=== PATIENT | female | born 1970 | race Caucasian/White ===

== ENCOUNTER 2016-05-15 15:58 | Inpatient (IN) | payer MEDICARE, MEDICAID ==
[~2016-05-15] VITALS: Ht 157.5 cm; Wt 49.9 kg
[~2016-05-15 15:58] MED LIST: DIVA500T69 PO; NALT50 PO; OLAN5Z PO; TOLT4CAP33 PO; TRAZ150 PO
[2016-05-15] MEDS ORDERED: ACETAMINOPHEN 325 MG TABLET PO PRN (16:15)
[2016-05-15] MEDS ORDERED: HydrOXYzine PAMOATE 50 MG CAPSULE PO PRN (16:15)
[2016-05-15] MEDS ORDERED: OLANZapine 5 MG RAPDIS TABLET PO PRN (16:15)
[2016-05-15] MEDS ORDERED: MAGNESIUM HYDROXIDE SUSPENSION 30 ML UDCUP PO PRN (16:15)
[2016-05-15] MEDS ORDERED: GuaiFENesin/D-METHORPHAN [SUGAR-FREE] 200-20MG/10 ML SYRUP UDCUP PO PRN (16:15)
[2016-05-15] MEDS ORDERED: LOPERAMIDE HCL 2 MG CAPSULE PO PRN (16:15)
[2016-05-15] MEDS ORDERED: PROMETHAZINE HCL 25 MG TABLET PO PRN (16:15)
[2016-05-15] MEDS ORDERED: ZOLPIDEM TARTRATE 10 MG TABLET PO PRN (16:15)
[2016-05-15 16:46] VITALS: BP 120/83
[2016-05-15] MEDS: LORazepam 2 MG TABLET PO PRN (18:28)
[2016-05-15] MEDS: THIAMINE HCL 100 MG TABLET PO SCH (18:28)
[2016-05-15] MEDS ORDERED: PERMETHRIN 5% 60 GM CREAM TP ONE (20:00)
[2016-05-15] MEDS: OLANZapine 5 MG RAPDIS TABLET PO SCH (20:51)
[2016-05-15] MEDS: DIVALPROEX SODIUM 500 MG ER TABLET PO SCH (20:51)
[2016-05-16 00:43] VITALS: BP 134/79
[2016-05-16] MEDS: FLUoxetine HCL 20 MG CAPSULE PO SCH (09:03)
[2016-05-16] MEDS: THIAMINE HCL 100 MG TABLET PO SCH ×2 (09:03→16:59)
[2016-05-16] MEDS: FOLIC ACID 1 MG TABLET PO SCH (09:03)
[2016-05-16] MEDS: OMEPRAZOLE 20 MG CAPSULE PO SCH (09:03)
[2016-05-16] MEDS: MULTIVITAMINS WITH MINERALS, THERAPEUTIC TABLET PO SCH (09:03)
[2016-05-16 09:14] VITALS: BP 139/91
[2016-05-16] MEDS: LORazepam 2 MG TABLET PO PRN ×2 (11:26→16:59)
[2016-05-16 13:47] VITALS: BP 123/72
[2016-05-16 16:59] VITALS: BP 115/73
[2016-05-16] MEDS: DIVALPROEX SODIUM 500 MG ER TABLET PO SCH (20:19)
[2016-05-16] MEDS: OLANZapine 5 MG RAPDIS TABLET PO SCH (20:20)
[2016-05-17 00:27] VITALS: BP 110/69
[2016-05-17 08:08] LABS: BASOPHILS % (AUTO) 0.6 % (0.0-2.0); HEMATOCRIT 31.2 % (36-46); HEMOGLOBIN 9.9 g/dL (12.0-16.0); LYMPHOCYTES # (AUTO) 2.1 K/uL (1.0-4.8); LYMPHOCYTES % (AUTO) 22.2 % (22.0-44.0); MEAN CORPUSCULAR HGB CONC 31.7 G/dL (31.0-37.0); MEAN CORPUSCULAR VOLUME 76 fL (80-100); MONOCYTES # (AUTO) 0.7 K/uL (0.1-1.0); MONOCYTES % (AUTO) 7.9 % (2.0-9.0); NEUTROPHILS # (AUTO) 6.4 K/uL (1.8-7.7); NEUTROPHILS % (AUTO) 67.3 % (40.0-70.0); PLATELET COUNT (AUTO) 350 K/uL (150-450); RED BLOOD CELL COUNT(AUTO) 4.12 MIL/uL (4.00-5.20); RED CELL DISTRIBUTION WIDTH 19.8 % (11.5-14.5); WHITE BLOOD COUNT (AUTO) 9.5 K/uL (4.5-11.0)
[2016-05-17 08:19] VITALS: BP 110/79
[2016-05-17 08:32] LABS: RBC MORPHOLOGY COMMENT ABNORMAL RBC MORPH
[2016-05-17] MEDS: NALTREXONE HCL 50 MG TABLET PO SCH (09:22)
[2016-05-17] MEDS: FOLIC ACID 1 MG TABLET PO SCH (09:22)
[2016-05-17] MEDS: THIAMINE HCL 100 MG TABLET PO SCH ×2 (09:22→16:32)
[2016-05-17] MEDS: OMEPRAZOLE 20 MG CAPSULE PO SCH (09:22)
[2016-05-17] MEDS: FLUoxetine HCL 20 MG CAPSULE PO SCH (09:22)
[2016-05-17] MEDS: MULTIVITAMINS WITH MINERALS, THERAPEUTIC TABLET PO SCH (09:22)
[2016-05-17] MEDS: LORazepam 2 MG TABLET PO PRN ×2 (09:28→14:29)
[2016-05-17 09:29] LABS: ALANINE AMINOTRANSFERASE 29 U/L (12-78); ALBUMIN 2.9 g/dL (3.4-5.0); ANION GAP 6 mmol/L (8-16); ASPARTATE AMINOTRANSFERASE 18 U/L (15-37); BILIRUBIN,TOTAL 0.2 mg/dL (0.1-1.0); CALCIUM, TOTAL 8.1 mg/dL (8.8-10.5); CARBON DIOXIDE 27 mmol/L (22-29); CHLORIDE 105 mmol/L (98-107); CREATININE 0.73 mg/dL (0.60-1.30); GLOMERULAR FILTR. RATE CALC > 60 mL/min (>60); POTASSIUM 4.1 mmol/L (3.5-5.1); SODIUM SERUM 138 mmol/L (136-145); TOTAL PROTEIN, SERUM 6.4 g/dL (6.4-8.2); UREA NITROGEN, BLOOD 10 mg/dL (7-18)
[2016-05-17] MEDS ORDERED: OLANZAPINE PAMOATE 405 MG/2.7 ML VIAL IM ONE (16:00)
[2016-05-17 16:01] VITALS: BP 106/75
[2016-05-17] MEDS: MUPIROCIN CALCIUM 2% 22 GM OINTMENT TP SCH (16:35)
[2016-05-17 18:24] VITALS: BP 112/78
[2016-05-17 19:24] VITALS: BP 108/70
[2016-05-17] MEDS: DIVALPROEX SODIUM 500 MG ER TABLET PO SCH (20:01)
[2016-05-17 21:00] VITALS: BP 107/65
[2016-05-18 00:11] VITALS: BP 108/77
[2016-05-18 08:56] VITALS: BP 102/72
[2016-05-18] MEDS: THIAMINE HCL 100 MG TABLET PO SCH ×2 (09:26→17:10)
[2016-05-18] MEDS: FOLIC ACID 1 MG TABLET PO SCH (09:26)
[2016-05-18] MEDS: NALTREXONE HCL 50 MG TABLET PO SCH (09:26)
[2016-05-18] MEDS: MULTIVITAMINS WITH MINERALS, THERAPEUTIC TABLET PO SCH (09:26)
[2016-05-18] MEDS: OMEPRAZOLE 20 MG CAPSULE PO SCH (09:26)
[2016-05-18] MEDS: FLUoxetine HCL 20 MG CAPSULE PO SCH (09:26)
[2016-05-18] MEDS: MUPIROCIN CALCIUM 2% 22 GM OINTMENT TP SCH ×2 (09:27→17:10)
[2016-05-18] MEDS: LORazepam 2 MG TABLET PO PRN ×2 (09:32→14:49)
[2016-05-18 16:41] VITALS: BP 109/64
[2016-05-18] MEDS: FERROUS SULFATE 325 MG EC TABLET PO SCH (17:10)
[2016-05-18] MEDS: DIVALPROEX SODIUM 500 MG ER TABLET PO SCH (20:13)
[2016-05-19] MEDS: FERROUS SULFATE 325 MG EC TABLET PO SCH ×3 (06:36→16:18)
[2016-05-19 06:57] VITALS: BP 111/88
[2016-05-19 08:01] VITALS: BP 110/86
[2016-05-19] MEDS: OMEPRAZOLE 20 MG CAPSULE PO SCH (08:42)
[2016-05-19] MEDS: FOLIC ACID 1 MG TABLET PO SCH (08:42)
[2016-05-19] MEDS: FLUoxetine HCL 20 MG CAPSULE PO SCH (08:42)
[2016-05-19] MEDS: THIAMINE HCL 100 MG TABLET PO SCH ×2 (08:43→16:18)
[2016-05-19] MEDS: NALTREXONE HCL 50 MG TABLET PO SCH (08:43)
[2016-05-19] MEDS: MULTIVITAMINS WITH MINERALS, THERAPEUTIC TABLET PO SCH (08:43)
[2016-05-19] MEDS: MUPIROCIN CALCIUM 2% 22 GM OINTMENT TP SCH ×2 (08:43→19:24)
[2016-05-19 16:06] VITALS: BP 124/75
[2016-05-19] MEDS: DIVALPROEX SODIUM 500 MG ER TABLET PO SCH (20:00)
[2016-05-19] MEDS: LORazepam 2 MG TABLET PO PRN (20:00)
[2016-05-20 05:18] VITALS: BP 105/62
[2016-05-20] MEDS: FERROUS SULFATE 325 MG EC TABLET PO SCH ×3 (06:29→16:26)
[2016-05-20 08:53] VITALS: BP 119/71
[2016-05-20] MEDS: OMEPRAZOLE 20 MG CAPSULE PO SCH (09:18)
[2016-05-20] MEDS: NALTREXONE HCL 50 MG TABLET PO SCH (09:18)
[2016-05-20] MEDS: FLUoxetine HCL 20 MG CAPSULE PO SCH (09:18)
[2016-05-20] MEDS: MUPIROCIN CALCIUM 2% 22 GM OINTMENT TP SCH ×2 (09:18→16:27)
[2016-05-20] MEDS: FOLIC ACID 1 MG TABLET PO SCH (09:18)
[2016-05-20] MEDS: THIAMINE HCL 100 MG TABLET PO SCH ×2 (09:18→16:26)
[2016-05-20] MEDS: MULTIVITAMINS WITH MINERALS, THERAPEUTIC TABLET PO SCH (09:21)
[2016-05-20] MEDS: LORazepam 2 MG TABLET PO PRN (14:15)
[2016-05-20 16:08] VITALS: BP 111/60
[2016-05-20] MEDS: DIVALPROEX SODIUM 500 MG ER TABLET PO SCH (20:25)
[2016-05-21 04:28] VITALS: BP 117/60
[2016-05-21] MEDS: FERROUS SULFATE 325 MG EC TABLET PO SCH ×3 (07:01→16:44)
[2016-05-21] MEDS: MUPIROCIN CALCIUM 2% 22 GM OINTMENT TP SCH ×2 (08:46→16:48)
[2016-05-21] MEDS: THIAMINE HCL 100 MG TABLET PO SCH ×2 (08:46→16:45)
[2016-05-21] MEDS: OMEPRAZOLE 20 MG CAPSULE PO SCH (08:46)
[2016-05-21] MEDS: NALTREXONE HCL 50 MG TABLET PO SCH (08:46)
[2016-05-21] MEDS: MULTIVITAMINS WITH MINERALS, THERAPEUTIC TABLET PO SCH (08:46)
[2016-05-21] MEDS: FLUoxetine HCL 20 MG CAPSULE PO SCH (08:46)
[2016-05-21] MEDS: FOLIC ACID 1 MG TABLET PO SCH (08:46)
[2016-05-21 09:06] VITALS: BP 120/73
[2016-05-21] MEDS: LORazepam 2 MG TABLET PO PRN (11:07)
[2016-05-21] MEDS: DIVALPROEX SODIUM 500 MG ER TABLET PO SCH (20:58)
[2016-05-22 00:33] VITALS: BP 102/62
[2016-05-22] MEDS: FERROUS SULFATE 325 MG EC TABLET PO SCH ×3 (06:29→16:41)
[2016-05-22 08:02] VITALS: BP 123/80
[2016-05-22] MEDS: OMEPRAZOLE 20 MG CAPSULE PO SCH (09:00)
[2016-05-22] MEDS: MUPIROCIN CALCIUM 2% 22 GM OINTMENT TP SCH (09:00)
[2016-05-22] MEDS: FLUoxetine HCL 20 MG CAPSULE PO SCH (09:00)
[2016-05-22] MEDS: FOLIC ACID 1 MG TABLET PO SCH (09:00)
[2016-05-22] MEDS: THIAMINE HCL 100 MG TABLET PO SCH ×2 (09:00→16:41)
[2016-05-22] MEDS: NALTREXONE HCL 50 MG TABLET PO SCH (09:01)
[2016-05-22] MEDS: MULTIVITAMINS WITH MINERALS, THERAPEUTIC TABLET PO SCH (09:01)
[2016-05-22 16:01] VITALS: BP 112/71
[2016-05-22] MEDS: DIVALPROEX SODIUM 500 MG ER TABLET PO SCH (20:28)
[2016-05-23 00:33] VITALS: BP 104/64
[2016-05-23] MEDS: FERROUS SULFATE 325 MG EC TABLET PO SCH ×3 (06:16→16:43)
[2016-05-23 08:36] VITALS: BP 108/64
[2016-05-23] MEDS: MULTIVITAMINS WITH MINERALS, THERAPEUTIC TABLET PO SCH (09:04)
[2016-05-23] MEDS: FLUoxetine HCL 20 MG CAPSULE PO SCH (09:05)
[2016-05-23] MEDS: THIAMINE HCL 100 MG TABLET PO SCH ×2 (09:05→16:35)
[2016-05-23] MEDS: OMEPRAZOLE 20 MG CAPSULE PO SCH (09:05)
[2016-05-23] MEDS: FOLIC ACID 1 MG TABLET PO SCH (09:05)
[2016-05-23] MEDS: MAG HYDROX/AL HYDROX/SIMETH ES 30 ML SUSPENSION UDCUP PO PRN ×2 (10:04→16:01)
[2016-05-23] MEDS: NALTREXONE HCL 50 MG TABLET PO SCH (10:47)
[2016-05-23] MEDS ORDERED: FLUO-191 PO (15:10)
[2016-05-23] MEDS ORDERED: DIVA500T69 PO (15:10)
[2016-05-23] MEDS ORDERED: OLAN405V IM (15:10)
[2016-05-23] MEDS ORDERED: NALT50 PO (15:10)
[2016-05-23] MEDS: LORazepam 2 MG TABLET PO PRN (15:48)
[2016-05-23 16:02] VITALS: BP 113/81
[2016-05-23] MEDS: DIVALPROEX SODIUM 500 MG ER TABLET PO SCH (20:29)
[2016-05-24 05:27] VITALS: BP 105/71
[2016-05-24] MEDS: FERROUS SULFATE 325 MG EC TABLET PO SCH ×2 (06:32→12:21)
[2016-05-24 08:34] VITALS: BP 111/58
[2016-05-24] MEDS ORDERED: FLUoxetine HCL 20 MG CAPSULE PO SCH (09:00)
[2016-05-24] MEDS: OMEPRAZOLE 20 MG CAPSULE PO SCH (09:25)
[2016-05-24] MEDS: THIAMINE HCL 100 MG TABLET PO SCH (09:25)
[2016-05-24] MEDS: NALTREXONE HCL 50 MG TABLET PO SCH (09:25)
[2016-05-24] MEDS: MULTIVITAMINS WITH MINERALS, THERAPEUTIC TABLET PO SCH (09:25)
[2016-05-24] MEDS: FOLIC ACID 1 MG TABLET PO SCH (09:25)
[2016-05-24] MEDS: LORazepam 2 MG TABLET PO PRN (09:29)
[2016-05-24] MEDS ORDERED: FERR324T4 PO (09:36)
[2016-05-24] MEDS ORDERED: OMEP20 PO (09:36)
[2016-05-24] MEDS: MAG HYDROX/AL HYDROX/SIMETH ES 30 ML SUSPENSION UDCUP PO PRN (12:21)
[2016-06-14] MEDS ORDERED: OLANZAPINE PAMOATE 405 MG/2.7 ML VIAL IM SCH (09:00)
== END 2016-05-24 14:44 | disposition home or self-care (01) | DRG 885 ==
LOC: B2X 16:44 → EDSTATUS 16:54 → B2X 05-16 11:43
PROVIDERS: ADMIT Psychiatry & Neurology Psychiatry; ATTEND Psychiatry & Neurology Psychiatry
DX: F25.0 Schizoaffective disorder, bipolar type (principal); R45.851 Suicidal ideations; F17.200 Nicotine dependence, unspecified, uncomplicated; F41.9 Anxiety disorder, unspecified; F12.90 Cannabis use, unspecified, uncomplicated; F15.90 Other stimulant use, unspecified, uncomplicated; D64.9 Anemia, unspecified; R74.0 Nonspecific elevation of levels of transaminase and lactic acid dehydrogenase [LDH]; Z91.19 Patient's noncompliance with other medical treatment and regimen; Z88.0 Allergy status to penicillin; Z88.8 Allergy status to other drugs, medicaments and biological substances; Z22.322 Carrier or suspected carrier of Methicillin resistant Staphylococcus aureus; Z98.84 Bariatric surgery status
CPT/HCPCS: 87081; 93005; J2358

== ENCOUNTER 2016-07-10 18:04 | Inpatient (IN) | payer MEDICARE, MEDICAID ==
[~2016-07-10] VITALS: Ht 160 cm; Wt 55.0 kg
[~2016-07-10 18:04] MED LIST changes: +FERR324T4 PO; +FLUO-191 PO; +OLAN405V IM; -OLAN5Z PO; +OMEP20 PO; -TOLT4CAP33 PO; -TRAZ150 PO
[2016-07-10 18:58] LABS: BASOPHILS % (AUTO) 1.2 % (0.0-2.0); EOSINOPHILS % (AUTO) 1.6 % (1.0-6.0); HEMATOCRIT 28.9 % (36-46); LYMPHOCYTES # (AUTO) 2.7 K/uL (1.0-4.8); MEAN CORPUSCULAR HGB CONC 31.2 G/dL (31.0-37.0); MEAN CORPUSCULAR VOLUME 74 fL (80-100); MONOCYTES # (AUTO) 0.9 K/uL (0.1-1.0); MONOCYTES % (AUTO) 10.3 % (2.0-9.0); NEUTROPHILS # (AUTO) 5.2 K/uL (1.8-7.7); NEUTROPHILS % (AUTO) 56.9 % (40.0-70.0); PLATELET COUNT (AUTO) 350 K/uL (150-450); RED BLOOD CELL COUNT(AUTO) 3.91 MIL/uL (4.00-5.20); RED CELL DISTRIBUTION WIDTH 20.6 % (11.5-14.5); WHITE BLOOD COUNT (AUTO) 9.2 K/uL (4.5-11.0)
[2016-07-10 19:09] LABS: ANION GAP 11 mmol/L (8-16); CALCIUM, TOTAL 7.9 mg/dL (8.8-10.5); CARBON DIOXIDE 23 mmol/L (22-29); CHLORIDE 107 mmol/L (98-107); GLOMERULAR FILTR. RATE CALC > 60 mL/min (>60); POTASSIUM 3.6 mmol/L (3.5-5.1); SODIUM SERUM 141 mmol/L (136-145); UREA NITROGEN, BLOOD 14 mg/dL (7-18)
[2016-07-10 19:16] LABS: ALANINE AMINOTRANSFERASE 31 U/L (12-78); ALBUMIN 3.5 g/dL (3.4-5.0); ASPARTATE AMINOTRANSFERASE 35 U/L (15-37); BILIRUBIN,TOTAL 0.2 mg/dL (0.1-1.0); TOTAL PROTEIN, SERUM 7.2 g/dL (6.4-8.2)
[2016-07-10] MEDS ORDERED: LORazepam 2 MG TABLET PO PRN (20:00)
[2016-07-10] MEDS ORDERED: ZOLPIDEM TARTRATE 10 MG TABLET PO PRN (20:00)
[2016-07-10] MEDS ORDERED: HALOPERIDOL 5 MG TABLET PO PRN (20:00)
[2016-07-10] MEDS: DIVALPROEX SODIUM 500 MG ER TABLET PO SCH (20:41)
[2016-07-10] MEDS: OLANZapine 10 MG TABLET PO SCH (20:41)
[2016-07-10] MEDS: FLUoxetine HCL 10 MG CAPSULE PO SCH (20:41)
[2016-07-10] MEDS ORDERED: PNEUMOCOCCAL VACCINE POLYVALENT 0.5 ML VIAL [PPSV23] IM ONE (22:30)
[2016-07-10 22:35] VITALS: BP 128/49
[2016-07-11 08:30] VITALS: BP 101/55
[2016-07-11 16:55] VITALS: BP 139/77
[2016-07-11] MEDS ORDERED: ACETAMINOPHEN 325 MG TABLET PO PRN (17:15)
[2016-07-11] MEDS: DIVALPROEX SODIUM 500 MG ER TABLET PO SCH (20:08)
[2016-07-11] MEDS: FLUoxetine HCL 10 MG CAPSULE PO SCH (20:08)
[2016-07-11] MEDS: OLANZapine 10 MG TABLET PO SCH (20:11)
[2016-07-12] MEDS: FERROUS SULFATE 325 MG EC TABLET PO SCH ×3 (06:47→17:04)
[2016-07-12 08:30] VITALS: BP_SYST 124
[2016-07-12 16:28] VITALS: BP 119/69
[2016-07-12] MEDS: FLUoxetine HCL 10 MG CAPSULE PO SCH (20:16)
[2016-07-12] MEDS: OLANZapine 10 MG TABLET PO SCH (20:16)
[2016-07-12] MEDS: DIVALPROEX SODIUM 500 MG ER TABLET PO SCH (20:16)
[2016-07-13] MEDS: FERROUS SULFATE 325 MG EC TABLET PO SCH ×3 (06:45→16:52)
[2016-07-13 08:00] VITALS: BP 135/75
[2016-07-13] MEDS ORDERED: MAG HYDROX/AL HYDROX/SIMETH 30 ML SUSP UDCUP PO PRN (11:30)
[2016-07-13 16:15] VITALS: BP 121/83
[2016-07-13] MEDS: FLUoxetine HCL 10 MG CAPSULE PO SCH (20:34)
[2016-07-13] MEDS: OLANZapine 10 MG TABLET PO SCH (20:34)
[2016-07-13] MEDS: DIVALPROEX SODIUM 500 MG ER TABLET PO SCH (20:34)
[2016-07-14] MEDS: FERROUS SULFATE 325 MG EC TABLET PO SCH ×4 (07:08→17:01)
[2016-07-14 08:50] VITALS: BP 104/60
[2016-07-14 17:25] VITALS: BP 126/76
[2016-07-14] MEDS: OLANZapine 10 MG TABLET PO SCH (21:12)
[2016-07-14] MEDS: DIVALPROEX SODIUM 500 MG ER TABLET PO SCH (21:12)
[2016-07-14] MEDS: FLUoxetine HCL 10 MG CAPSULE PO SCH (21:13)
[2016-07-15] MEDS: FERROUS SULFATE 325 MG EC TABLET PO SCH ×3 (07:30→16:30)
[2016-07-15 08:00] VITALS: BP 115/73
[2016-07-15 19:01] VITALS: BP 106/61
[2016-07-15] MEDS: DIVALPROEX SODIUM 500 MG ER TABLET PO SCH (20:29)
[2016-07-15] MEDS: OLANZapine 10 MG TABLET PO SCH (20:29)
[2016-07-15] MEDS: FLUoxetine HCL 10 MG CAPSULE PO SCH (20:29)
[2016-07-16] MEDS: FERROUS SULFATE 325 MG EC TABLET PO SCH ×3 (06:34→16:10)
[2016-07-16 09:26] VITALS: BP 128/92
[2016-07-16] MEDS: OLANZapine 5 MG TABLET PO SCH (11:18)
[2016-07-16 16:48] VITALS: BP 117/66
[2016-07-16] MEDS: DIVALPROEX SODIUM 500 MG ER TABLET PO SCH (20:07)
[2016-07-16] MEDS: FLUoxetine HCL 10 MG CAPSULE PO SCH (20:07)
[2016-07-16] MEDS: OLANZapine 7.5 MG TABLET PO SCH (20:08)
[2016-07-17 06:19] VITALS: BP 107/73
[2016-07-17] MEDS: FERROUS SULFATE 325 MG EC TABLET PO SCH ×3 (06:35→16:22)
[2016-07-17 08:00] VITALS: BP 125/75
[2016-07-17] MEDS: OLANZapine 5 MG TABLET PO SCH (09:02)
[2016-07-17] MEDS: ONDANSETRON HCL 4 MG TABLET PO PRN (14:34)
[2016-07-17 16:42] VITALS: BP 106/79
[2016-07-17] MEDS: FLUoxetine HCL 10 MG CAPSULE PO SCH (20:16)
[2016-07-17] MEDS: DIVALPROEX SODIUM 500 MG ER TABLET PO SCH (20:16)
[2016-07-17] MEDS: OLANZapine 7.5 MG TABLET PO SCH (20:16)
[2016-07-18 01:54] VITALS: BP 134/87
[2016-07-18] MEDS: FERROUS SULFATE 325 MG EC TABLET PO SCH ×3 (06:59→16:40)
[2016-07-18] MEDS: OLANZapine 5 MG TABLET PO SCH (09:10)
[2016-07-18 09:55] VITALS: BP 120/66
[2016-07-18] MEDS ORDERED: PETROLATUM,WHITE 71 GM JELLY TP PRN (16:45)
[2016-07-18 16:50] VITALS: BP 106/51
[2016-07-18] MEDS: OLANZapine 7.5 MG TABLET PO SCH (20:36)
[2016-07-18] MEDS: FLUoxetine HCL 10 MG CAPSULE PO SCH (20:36)
[2016-07-18] MEDS: DIVALPROEX SODIUM 500 MG ER TABLET PO SCH (20:36)
[2016-07-18] MEDS ORDERED: DIVALPROEX SODIUM 250 MG ER TABLET PO SCH (21:00)
[2016-07-19] MEDS: FERROUS SULFATE 325 MG EC TABLET PO SCH ×2 (06:46→12:24)
[2016-07-19 07:14] VITALS: BP 115/76
[2016-07-19 08:06] VITALS: BP 114/76
[2016-07-19] MEDS: ONDANSETRON HCL 4 MG TABLET PO PRN (08:07)
[2016-07-19] MEDS: OLANZapine 5 MG TABLET PO SCH (08:09)
[2016-07-19] MEDS ORDERED: DIVA250T45 PO (13:28)
[2016-07-19] MEDS ORDERED: PROZ10 PO (13:30)
[2016-07-19] MEDS ORDERED: OLAN7.5T2 PO (13:30)
[2016-07-19] MEDS ORDERED: OLAN5TAB2 PO (13:31)
== END 2016-07-19 15:10 | disposition home or self-care (01) | DRG 885 ==
LOC: EMS 18:07 → 3EX 20:41
DX: F25.0 Schizoaffective disorder, bipolar type (principal); R45.851 Suicidal ideations; D64.9 Anemia, unspecified; F12.90 Cannabis use, unspecified, uncomplicated; F79 Unspecified intellectual disabilities; G24.01 Drug induced subacute dyskinesia; J44.9 Chronic obstructive pulmonary disease, unspecified; R74.0 Nonspecific elevation of levels of transaminase and lactic acid dehydrogenase [LDH]; F15.10 Other stimulant abuse, uncomplicated; T50.905A Adverse effect of unspecified drugs, medicaments and biological substances, initial encounter; Z59.0 Homelessness; Z79.899 Other long term (current) drug therapy; Z87.891 Personal history of nicotine dependence; Z91.5 Personal history of self-harm; Z88.0 Allergy status to penicillin; Z88.8 Allergy status to other drugs, medicaments and biological substances; Z91.02 Food additives allergy status; Z71.51 Drug abuse counseling and surveillance of drug abuser; Y92.89 Other specified places as the place of occurrence of the external cause; Y93.89 Activity, other specified; Y99.8 Other external cause status
CPT/HCPCS: 99285; G0480; Q0162

== ENCOUNTER 2016-08-30 18:45 | Inpatient (IN) | payer MEDICARE, MEDICAID ==
[~2016-08-30] VITALS: Ht 160 cm; Wt 55.1 kg
[~2016-08-30 18:45] MED LIST changes: +DIVA250T45 PO; -FLUO-191 PO; -NALT50 PO; -OLAN405V IM; +OLAN5TAB2 PO; +OLAN7.5T2 PO; -OMEP20 PO; +PROZ10 PO
[2016-08-30] MEDS ORDERED: HALOPERIDOL 5 MG TABLET PO PRN (19:30)
[2016-08-30] MEDS ORDERED: ZOLPIDEM TARTRATE 10 MG TABLET PO PRN (19:30)
[2016-08-30 19:39] VITALS: BP 124/76
[2016-08-30] MEDS ORDERED: FLUoxetine HCL 10 MG CAPSULE PO SCH (21:00)
[2016-08-30] MEDS ORDERED: OLANZapine 7.5 MG TABLET PO SCH (21:00)
[2016-08-30] MEDS ORDERED: DIVALPROEX SODIUM 250 MG DR TABLET PO SCH (21:00)
[2016-08-31 08:15] LABS: BASOPHILS # (AUTO) 0.06 K/uL (0.00-0.20); BASOPHILS % (AUTO) 1.2 % (0.0-2.0); EOSINOPHILS # (AUTO) 0.17 K/uL (0.00-0.70); EOSINOPHILS % (AUTO) 3.08 % (1.0-6.0); HEMATOCRIT 32.3 % (36-46); HEMOGLOBIN 10.2 g/dL (12.0-16.0); LYMPHOCYTES # (AUTO) 2.7 K/uL (1.0-4.8); LYMPHOCYTES % (AUTO) 47.8 % (22.0-44.0); MEAN CORPUSCULAR HGB CONC 31.7 G/dL (31.0-37.0); MEAN CORPUSCULAR VOLUME 79 fL (80-100); MONOCYTES # (AUTO) 0.5 K/uL (0.1-1.0); MONOCYTES % (AUTO) 9.2 % (2.0-9.0); NEUTROPHILS # (AUTO) 2.2 K/uL (1.8-7.7); NEUTROPHILS % (AUTO) 38.9 % (40.0-70.0); PLATELET COUNT (AUTO) 310 K/uL (150-450); RED BLOOD CELL COUNT(AUTO) 4.09 MIL/uL (4.00-5.20); RED CELL DISTRIBUTION WIDTH 21.1 % (11.5-14.5); WHITE BLOOD COUNT (AUTO) 5.5 K/uL (4.5-11.0)
[2016-08-31 08:19] VITALS: BP 102/80
[2016-08-31 08:24] LABS: RBC MORPHOLOGY COMMENT ABNORMAL RBC MORPH
[2016-08-31 08:38] LABS: HEMOGLOBIN A1C 5.6 % (4.5-6.2)
[2016-08-31 08:44] LABS: ALANINE AMINOTRANSFERASE 26 U/L (12-78); ALBUMIN 2.9 g/dL (3.4-5.0); ANION GAP 6 mmol/L (8-16); ASPARTATE AMINOTRANSFERASE 18 U/L (15-37); BILIRUBIN,TOTAL 0.2 mg/dL (0.1-1.0); CALCIUM, TOTAL 8.1 mg/dL (8.8-10.5); CARBON DIOXIDE 28 mmol/L (22-29); CHLORIDE 108 mmol/L (98-107); CREATININE 0.68 mg/dL (0.60-1.30); GLOMERULAR FILTR. RATE CALC > 60 mL/min (>60); POTASSIUM 3.7 mmol/L (3.5-5.1); SODIUM SERUM 142 mmol/L (136-145); THYROID STIMULATING HORMONE 1.43 uIU/mL (0.36-3.74); TOTAL PROTEIN, SERUM 6.3 g/dL (6.4-8.2); UREA NITROGEN, BLOOD 9 mg/dL (7-18)
[2016-08-31] MEDS ORDERED: OLANZapine 5 MG TABLET PO SCH (09:00)
[2016-08-31 16:03] VITALS: BP 106/70
[2016-08-31] MEDS ORDERED: ACETAMINOPHEN 325 MG TABLET PO PRN (21:15)
[2016-08-31] MEDS ORDERED: IBUPROFEN 400 MG TABLET PO PRN (21:15)
[2016-08-31] MEDS ORDERED: ALBUTEROL SULFATE HFA 90 MCG/PUFF 8 GM INHALER IH PRN (21:15)
[2016-09-01 02:33] VITALS: BP 104/69
[2016-09-01 08:05] VITALS: BP 127/72
[2016-09-01] MEDS: FLUoxetine HCL 20 MG CAPSULE PO SCH (08:34)
[2016-09-01] MEDS ORDERED: ARIPiprazole 5 MG TABLET PO ONE (09:00)
[2016-09-01 09:18] LABS: THYROID STIMULATING HORMONE 0.91 uIU/mL (0.36-3.74)
[2016-09-01 09:39] LABS: HEMOGLOBIN A1C 5.7 % (4.5-6.2)
[2016-09-01] MEDS: LORazepam 2 MG TABLET PO PRN (14:17)
[2016-09-01 16:00] VITALS: BP 105/67
[2016-09-02 06:52] VITALS: BP 104/84
[2016-09-02 08:27] VITALS: BP 134/85
[2016-09-02] MEDS ORDERED: ARIPiprazole 10 MG TABLET PO ONE (09:00)
[2016-09-02] MEDS: ARIPiprazole 10 MG TABLET PO SCH (09:14)
[2016-09-02] MEDS: FLUoxetine HCL 20 MG CAPSULE PO SCH (09:14)
[2016-09-02] MEDS: LORazepam 2 MG TABLET PO PRN ×2 (09:47→15:50)
[2016-09-02 16:15] VITALS: BP 119/67
[2016-09-03 01:22] VITALS: BP 138/88
[2016-09-03 08:27] VITALS: BP 103/62
[2016-09-03] MEDS: FLUoxetine HCL 20 MG CAPSULE PO SCH (08:34)
[2016-09-03] MEDS: ARIPiprazole 10 MG TABLET PO SCH (08:34)
[2016-09-03] MEDS: LORazepam 2 MG TABLET PO PRN ×2 (08:37→13:47)
[2016-09-03 16:05] VITALS: BP 105/64
[2016-09-03] MEDS: PALIPERIDONE 3 MG ER TABLET PO SCH (20:33)
[2016-09-04] VITALS: BP 106/69
[2016-09-04 08:23] VITALS: BP 108/68
[2016-09-04 08:35] LABS: APPEARANCE,URINE CLEAR (CLEAR); GLUCOSE, URINE (UA) NEGATIVE (NEGATIVE); KETONES,URINE NEGATIVE (NEGATIVE); LEUKOCYTE ESTERASE ,URINE NEGATIVE (NEGATIVE); OCCULT BLOOD,URINE NEGATIVE (NEGATIVE); PH,URINE 7.5 (5.0-8.0); PROTEIN,URINE NEGATIVE (NEGATIVE)
[2016-09-04 08:37] LABS: ADD UA MICROSCOPIC NO
[2016-09-04] MEDS: PALIPERIDONE 3 MG ER TABLET PO SCH (08:55)
[2016-09-04] MEDS ORDERED: FLUoxetine HCL 20 MG CAPSULE PO SCH (09:00)
[2016-09-04] MEDS: LORazepam 2 MG TABLET PO PRN (10:49)
[2016-09-04 16:05] VITALS: BP 108/70
[2016-09-04] MEDS: PALIPERIDONE 6 MG ER TABLET PO SCH (20:46)
[2016-09-04] MEDS: TraZODone HCL 100 MG TABLET PO SCH (20:46)
[2016-09-05 03:58] VITALS: BP 111/68
[2016-09-05 08:06] VITALS: BP 103/64
[2016-09-05] MEDS: FLUoxetine HCL 20 MG CAPSULE PO SCH (08:32)
[2016-09-05] MEDS: PALIPERIDONE 6 MG ER TABLET PO SCH ×2 (08:32→21:34)
[2016-09-05] MEDS: BENZOCAINE/MENTHOL LOZENGE PO PRN (09:47)
[2016-09-05] MEDS: LORazepam 2 MG TABLET PO PRN (10:46)
[2016-09-05] MEDS ORDERED: ONDANSETRON HCL 4 MG TABLET PO PRN (13:15)
[2016-09-05 16:09] VITALS: BP 113/67
[2016-09-05] MEDS ORDERED: PALIPERIDONE PALMITATE 234 MG/1.5 ML SYRINGE IM SCH (21:00)
[2016-09-05] MEDS: TraZODone HCL 100 MG TABLET PO SCH (21:34)
[2016-09-06 00:18] VITALS: BP 111/69
[2016-09-06] MEDS: FERROUS SULFATE 325 MG EC TABLET PO SCH ×2 (06:32→13:19)
[2016-09-06 08:17] VITALS: BP 102/62
[2016-09-06] MEDS: LORazepam 2 MG TABLET PO PRN (08:52)
[2016-09-06] MEDS: PALIPERIDONE 6 MG ER TABLET PO SCH (08:53)
[2016-09-06] MEDS: FLUoxetine HCL 20 MG CAPSULE PO SCH (08:53)
[2016-09-06] MEDS ORDERED: OMEPRAZOLE 20 MG CAPSULE PO SCH (09:00)
[2016-09-06] MEDS: BENZOCAINE/MENTHOL LOZENGE PO PRN (11:29)
[2016-09-06] MEDS ORDERED: OMEP20 PO (13:59)
[2016-09-06] MEDS ORDERED: TRAZ-147 PO (13:59)
[2016-09-06] MEDS ORDERED: PALI6 PO (13:59)
[2016-09-06] MEDS ORDERED: PALI234D IM (13:59)
[2016-09-06] MEDS ORDERED: FLUO-191 PO (13:59)
[2016-10-02] MEDS ORDERED: PALIPERIDONE PALMITATE 234 MG/1.5 ML SYRINGE IM SCH (09:00)
== END 2016-09-06 15:45 | disposition home or self-care (01) | DRG 885 ==
LOC: B2X 19:21 → EDSTATUS 19:26
PROVIDERS: ADMIT Psychiatry & Neurology Psychiatry; ATTEND Psychiatry & Neurology Psychiatry
DX: F25.1 Schizoaffective disorder, depressive type (principal); R45.851 Suicidal ideations; F15.20 Other stimulant dependence, uncomplicated; D64.9 Anemia, unspecified; F60.3 Borderline personality disorder; J44.9 Chronic obstructive pulmonary disease, unspecified; F19.10 Other psychoactive substance abuse, uncomplicated; R45.87 Impulsiveness; F39 Unspecified mood [affective] disorder; Z88.0 Allergy status to penicillin; Z91.013 Allergy to seafood; Z71.51 Drug abuse counseling and surveillance of drug abuser; Z91.5 Personal history of self-harm; Z88.8 Allergy status to other drugs, medicaments and biological substances; Z79.899 Other long term (current) drug therapy
CPT/HCPCS: 80307; 83036; 84439; 84443; Q0162

== ENCOUNTER 2016-09-23 17:28 | Inpatient (IN) | payer MEDICARE, MEDICAID ==
[~2016-09-23] VITALS: Ht 162.6 cm; Wt 56.2 kg
[~2016-09-23 17:28] MED LIST changes: -DIVA250T45 PO; -DIVA500T69 PO; +FLUO-191 PO; -OLAN5TAB2 PO; -OLAN7.5T2 PO; +OMEP20 PO; +PALI234D IM; +PALI6 PO; -PROZ10 PO; +TRAZ-147 PO
[2016-09-23 17:52] VITALS: BP 112/88
[2016-09-23] MEDS ORDERED: ZOLPIDEM TARTRATE 10 MG TABLET PO PRN (18:00)
[2016-09-23] MEDS ORDERED: HALOPERIDOL 5 MG TABLET PO PRN (18:00)
[2016-09-23 19:47] VITALS: BP 108/74
[2016-09-24 06:55] LABS: ALANINE AMINOTRANSFERASE 25 U/L (12-78); ANION GAP 3 mmol/L (8-16); ASPARTATE AMINOTRANSFERASE 16 U/L (15-37); BILIRUBIN,TOTAL 0.2 mg/dL (0.1-1.0); CALCIUM, TOTAL 8.2 mg/dL (8.8-10.5); CARBON DIOXIDE 30 mmol/L (22-29); CHLORIDE 104 mmol/L (98-107); CREATININE 0.75 mg/dL (0.60-1.30); GLOMERULAR FILTR. RATE CALC > 60 mL/min (>60); POTASSIUM 3.8 mmol/L (3.5-5.1); SODIUM SERUM 137 mmol/L (136-145); THYROID STIMULATING HORMONE 2.01 uIU/mL (0.36-3.74); TOTAL PROTEIN, SERUM 6.3 g/dL (6.4-8.2); UREA NITROGEN, BLOOD 12 mg/dL (7-18)
[2016-09-24 06:56] LABS: BASOPHILS % (AUTO) 1.1 % (0.0-2.0); EOSINOPHILS % (AUTO) 2.6 % (1.0-6.0); HEMOGLOBIN 9.9 g/dL (12.0-16.0); LYMPHOCYTES # (AUTO) 1.9 K/uL (1.0-4.8); LYMPHOCYTES % (AUTO) 31.4 % (22.0-44.0); MEAN CORPUSCULAR HEMOGLOBIN 24.2 pg (26.0-34.0); MEAN CORPUSCULAR HGB CONC 30.9 G/dL (31.0-37.0); MEAN CORPUSCULAR VOLUME 78 fL (80-100); MONOCYTES # (AUTO) 0.8 K/uL (0.1-1.0); MONOCYTES % (AUTO) 12.6 % (2.0-9.0); NEUTROPHILS # (AUTO) 3.2 K/uL (1.8-7.7); NEUTROPHILS % (AUTO) 52.3 % (40.0-70.0); PLATELET COUNT (AUTO) 322 K/uL (150-450); RED BLOOD CELL COUNT(AUTO) 4.09 MIL/uL (4.00-5.20); RED CELL DISTRIBUTION WIDTH 19.2 % (11.5-14.5); WHITE BLOOD COUNT (AUTO) 6.1 K/uL (4.5-11.0)
[2016-09-24 08:00] VITALS: BP 106/66
[2016-09-24] MEDS: FERROUS SULFATE 325 MG EC TABLET PO SCH ×3 (08:04→16:40)
[2016-09-24] MEDS: OMEPRAZOLE 20 MG CAPSULE PO SCH (08:04)
[2016-09-24 11:26] LABS: RBC MORPHOLOGY COMMENT ABNORMAL RBC MORPH
[2016-09-24 13:21] LABS: APPEARANCE,URINE CLEAR (CLEAR); GLUCOSE, URINE (UA) NEGATIVE (NEGATIVE); KETONES,URINE NEGATIVE (NEGATIVE); LEUKOCYTE ESTERASE ,URINE NEGATIVE (NEGATIVE); OCCULT BLOOD,URINE SMALL (NEGATIVE); PH,URINE 7.5 (5.0-8.0); PROTEIN,URINE NEGATIVE (NEGATIVE)
[2016-09-24 13:42] LABS: ADD UA MICROSCOPIC YES
[2016-09-24 13:44] LABS: RBC,URINE 0-2 /HPF (0-2); SQUAMOUS EPITHELIAL CELL,UR Few /LPF (None Seen); WBC,URINE 0-2 /HPF (0-5)
[2016-09-24] MEDS: LORazepam 2 MG TABLET PO PRN (14:21)
[2016-09-24] MEDS ORDERED: MAGNESIUM HYDROXIDE SUSPENSION 30 ML UDCUP PO ONE (15:15)
[2016-09-24] MEDS: ONDANSETRON HCL 4 MG TABLET PO PRN (15:38)
[2016-09-24] MEDS: PALIPERIDONE 6 MG ER TABLET PO SCH (16:41)
[2016-09-24 17:48] VITALS: BP 100/63
[2016-09-24] MEDS ORDERED: IBUPROFEN 400 MG TABLET PO PRN (19:45)
[2016-09-24] MEDS ORDERED: ALBUTEROL SULFATE HFA 90 MCG/PUFF 8 GM INHALER IH PRN (19:45)
[2016-09-24] MEDS ORDERED: ACETAMINOPHEN 325 MG TABLET PO PRN (19:45)
[2016-09-24] MEDS: TraZODone HCL 100 MG TABLET PO SCH (20:01)
[2016-09-24] MEDS ORDERED: TraZODone HCL 100 MG TABLET PO SCH (21:00)
[2016-09-24] MEDS ORDERED: TraZODone HCL 150 MG TABLET PO SCH (21:00)
[2016-09-25 02:42] VITALS: BP 94/57
[2016-09-25 08:00] VITALS: BP 100/71
[2016-09-25] MEDS: PALIPERIDONE 6 MG ER TABLET PO SCH ×2 (08:03→16:54)
[2016-09-25] MEDS: OMEPRAZOLE 20 MG CAPSULE PO SCH (08:03)
[2016-09-25] MEDS: ONDANSETRON HCL 4 MG TABLET PO PRN ×2 (08:03→17:41)
[2016-09-25] MEDS: FERROUS SULFATE 325 MG EC TABLET PO SCH ×3 (08:03→16:54)
[2016-09-25] MEDS: LORazepam 2 MG TABLET PO PRN (08:03)
[2016-09-25] MEDS: FLUoxetine HCL 20 MG CAPSULE PO SCH (08:04)
[2016-09-25] MEDS: MAG HYDROX/AL HYDROX/SIMETH ES 30 ML SUSPENSION UDCUP PO PRN (09:16)
[2016-09-25 17:00] VITALS: BP 95/60
[2016-09-25] MEDS: TraZODone HCL 100 MG TABLET PO SCH (21:07)
[2016-09-26] MEDS: FERROUS SULFATE 325 MG EC TABLET PO SCH ×3 (06:48→16:23)
[2016-09-26 08:00] VITALS: BP 93/60
[2016-09-26] MEDS: PALIPERIDONE 6 MG ER TABLET PO SCH ×2 (08:21→16:23)
[2016-09-26] MEDS: OMEPRAZOLE 20 MG CAPSULE PO SCH (08:21)
[2016-09-26] MEDS: FLUoxetine HCL 20 MG CAPSULE PO SCH (08:21)
[2016-09-26] MEDS: LORazepam 2 MG TABLET PO PRN (14:20)
[2016-09-26 16:27] VITALS: BP 107/68
[2016-09-26] MEDS: TraZODone HCL 100 MG TABLET PO SCH (20:19)
[2016-09-27] MEDS: FERROUS SULFATE 325 MG EC TABLET PO SCH ×3 (07:22→17:30)
[2016-09-27] MEDS: PALIPERIDONE 6 MG ER TABLET PO SCH ×2 (08:40→16:37)
[2016-09-27] MEDS: FLUoxetine HCL 20 MG CAPSULE PO SCH (08:40)
[2016-09-27] MEDS: OMEPRAZOLE 20 MG CAPSULE PO SCH (08:41)
[2016-09-27 09:23] VITALS: BP 139/77
[2016-09-27] MEDS: LORazepam 2 MG TABLET PO PRN (10:41)
[2016-09-27] MEDS: MAG HYDROX/AL HYDROX/SIMETH ES 30 ML SUSPENSION UDCUP PO PRN (16:35)
[2016-09-27 17:17] VITALS: BP 103/61
[2016-09-27] MEDS: TraZODone HCL 100 MG TABLET PO SCH (20:34)
[2016-09-28] MEDS: PALIPERIDONE 6 MG ER TABLET PO SCH ×2 (08:24→17:07)
[2016-09-28] MEDS: FLUoxetine HCL 20 MG CAPSULE PO SCH (08:24)
[2016-09-28] MEDS: OMEPRAZOLE 20 MG CAPSULE PO SCH (08:24)
[2016-09-28] MEDS: FERROUS SULFATE 325 MG EC TABLET PO SCH ×3 (08:24→17:07)
[2016-09-28] MEDS: ONDANSETRON HCL 4 MG TABLET PO PRN (08:25)
[2016-09-28 13:30] VITALS: BP 90/56
[2016-09-28 17:02] VITALS: BP 101/62
[2016-09-28] MEDS: TraZODone HCL 100 MG TABLET PO SCH (20:36)
[2016-09-29] MEDS: FERROUS SULFATE 325 MG EC TABLET PO SCH ×3 (06:49→16:39)
[2016-09-29] MEDS: PALIPERIDONE 6 MG ER TABLET PO SCH ×2 (08:07→16:39)
[2016-09-29] MEDS: FLUoxetine HCL 20 MG CAPSULE PO SCH (08:07)
[2016-09-29] MEDS: OMEPRAZOLE 20 MG CAPSULE PO SCH (08:07)
[2016-09-29 09:51] VITALS: BP 106/62
[2016-09-29 17:00] VITALS: BP 110/60
[2016-09-29] MEDS: TraZODone HCL 100 MG TABLET PO SCH (20:36)
[2016-09-30] MEDS: FERROUS SULFATE 325 MG EC TABLET PO SCH ×4 (06:50→16:35)
[2016-09-30] MEDS: OMEPRAZOLE 20 MG CAPSULE PO SCH ×2 (08:23→08:38)
[2016-09-30] MEDS: FLUoxetine HCL 20 MG CAPSULE PO SCH ×2 (08:23→08:38)
[2016-09-30] MEDS: PALIPERIDONE 6 MG ER TABLET PO SCH ×3 (08:23→16:35)
[2016-09-30] MEDS: ONDANSETRON HCL 4 MG TABLET PO PRN ×2 (08:33→17:59)
[2016-09-30 10:19] VITALS: BP 118/57
[2016-09-30] MEDS: MAG HYDROX/AL HYDROX/SIMETH ES 30 ML SUSPENSION UDCUP PO PRN ×2 (12:36→18:00)
[2016-09-30 17:31] VITALS: BP 103/59
[2016-09-30] MEDS: TraZODone HCL 100 MG TABLET PO SCH (20:25)
[2016-10-01] MEDS: FERROUS SULFATE 325 MG EC TABLET PO SCH ×2 (06:45→11:43)
[2016-10-01] MEDS: ONDANSETRON HCL 4 MG TABLET PO PRN (08:02)
[2016-10-01 08:13] VITALS: BP 103/63
[2016-10-01] MEDS: FLUoxetine HCL 20 MG CAPSULE PO SCH (08:58)
[2016-10-01] MEDS: OMEPRAZOLE 20 MG CAPSULE PO SCH (08:58)
[2016-10-01] MEDS: PALIPERIDONE 6 MG ER TABLET PO SCH (09:19)
[2016-10-01] MEDS: MAG HYDROX/AL HYDROX/SIMETH ES 30 ML SUSPENSION UDCUP PO PRN (12:18)
[2016-10-01] MEDS ORDERED: PALIPERIDONE PALMITATE 234 MG/1.5 ML SYRINGE IM ONE (13:15)
== END 2016-10-01 14:50 | disposition home or self-care (01) | DRG 885 ==
LOC: 3EX 18:16 → EDSTATUS 18:44
PROVIDERS: ADMIT Psychiatry & Neurology Child & Adolescent Psychiatry; ATTEND Psychiatry & Neurology Psychiatry
DX: F25.0 Schizoaffective disorder, bipolar type (principal); R45.851 Suicidal ideations; F15.20 Other stimulant dependence, uncomplicated; F25.1 Schizoaffective disorder, depressive type; D64.9 Anemia, unspecified; F60.3 Borderline personality disorder; R45.87 Impulsiveness; F90.9 Attention-deficit hyperactivity disorder, unspecified type; K21.9 Gastro-esophageal reflux disease without esophagitis; J44.9 Chronic obstructive pulmonary disease, unspecified; Z53.29 Procedure and treatment not carried out because of patient's decision for other reasons; F19.10 Other psychoactive substance abuse, uncomplicated; F12.10 Cannabis abuse, uncomplicated; F50.9 Eating disorder, unspecified; F10.10 Alcohol abuse, uncomplicated; Z88.8 Allergy status to other drugs, medicaments and biological substances; Z59.0 Homelessness; Z91.5 Personal history of self-harm; Z91.19 Patient's noncompliance with other medical treatment and regimen; Z88.0 Allergy status to penicillin; Z71.51 Drug abuse counseling and surveillance of drug abuser; Z91.013 Allergy to seafood
CPT/HCPCS: 84436; 84439; 84443; 87081; Q0162

== ENCOUNTER 2017-02-01 12:57 | Inpatient (IN) | payer MEDICARE, MEDICAID ==
[~2017-02-01] VITALS: Ht 162.6 cm; Wt 57.7 kg
[2017-02-01 14:01] VITALS: BP 111/64
[2017-02-01] MEDS ORDERED: ZOLPIDEM TARTRATE 10 MG TABLET PO PRN (14:15)
[2017-02-01 16:28] VITALS: BP 113/74
[2017-02-01] MEDS: LORazepam 2 MG TABLET PO PRN ×2 (17:07→23:00)
[2017-02-01] MEDS ORDERED: INFLUENZA VIRUS VACCINE QVS 2017-18 (3YR+)/PF 60 MCG/0.5 ML SYRINGE IM ONE (17:15)
[2017-02-01] MEDS: PALIPERIDONE 6 MG ER TABLET PO SCH (20:06)
[2017-02-01] MEDS: TraZODone HCL 100 MG TABLET PO SCH (20:07)
[2017-02-02 05:37] VITALS: BP 110/68
[2017-02-02] MEDS: FERROUS SULFATE 325 MG EC TABLET PO SCH ×3 (06:28→17:05)
[2017-02-02 08:29] LABS: BASOPHILS % (AUTO) 0.6 % (0.0-2.0); EOSINOPHILS % (AUTO) 0.2 % (1.0-6.0); HEMATOCRIT 29.1 % (36-46); HEMOGLOBIN 9.4 g/dL (12.0-16.0); LYMPHOCYTES # (AUTO) 1.8 K/uL (1.0-4.8); LYMPHOCYTES % (AUTO) 26.2 % (22.0-44.0); MEAN CORPUSCULAR HEMOGLOBIN 24.5 pg (26.0-34.0); MEAN CORPUSCULAR HGB CONC 32.1 G/dL (31.0-37.0); MEAN CORPUSCULAR VOLUME 76 fL (80-100); MONOCYTES # (AUTO) 0.7 K/uL (0.1-1.0); MONOCYTES % (AUTO) 10.2 % (2.0-9.0); NEUTROPHILS # (AUTO) 4.3 K/uL (1.8-7.7); NEUTROPHILS % (AUTO) 62.8 % (40.0-70.0); PLATELET COUNT (AUTO) 336 K/uL (150-450); RED BLOOD CELL COUNT(AUTO) 3.82 MIL/uL (4.00-5.20); RED CELL DISTRIBUTION WIDTH 18.8 % (11.5-14.5); WHITE BLOOD COUNT (AUTO) 6.9 K/uL (4.5-11.0)
[2017-02-02 08:55] LABS: ALANINE AMINOTRANSFERASE 23 U/L (12-78); ALBUMIN 3.2 g/dL (3.4-5.0); ANION GAP 6 mmol/L (8-16); ASPARTATE AMINOTRANSFERASE 19 U/L (15-37); BILIRUBIN,TOTAL 0.2 mg/dL (0.1-1.0); CALCIUM, TOTAL 8.3 mg/dL (8.8-10.5); CARBON DIOXIDE 28 mmol/L (22-29); CHLORIDE 107 mmol/L (98-107); CREATININE 0.76 mg/dL (0.60-1.30); GLOMERULAR FILTR. RATE CALC > 60 mL/min (>60); SODIUM SERUM 141 mmol/L (136-145); THYROID STIMULATING HORMONE 0.68 uIU/mL (0.36-3.74); TOTAL PROTEIN, SERUM 6.2 g/dL (6.4-8.2); UREA NITROGEN, BLOOD 9 mg/dL (7-18)
[2017-02-02] MEDS: FLUoxetine HCL 20 MG CAPSULE PO SCH (08:57)
[2017-02-02] MEDS: PALIPERIDONE 6 MG ER TABLET PO SCH ×2 (08:58→20:38)
[2017-02-02] MEDS: OMEPRAZOLE 20 MG CAPSULE PO SCH (08:58)
[2017-02-02 09:10] LABS: RBC MORPHOLOGY COMMENT ABNORMAL RBC MORPH
[2017-02-02] MEDS: LORazepam 2 MG TABLET PO PRN (14:55)
[2017-02-02 16:25] VITALS: BP 100/52
[2017-02-02] MEDS: TraZODone HCL 100 MG TABLET PO SCH (20:38)
[2017-02-03 00:15] VITALS: BP 113/67
[2017-02-03] MEDS: FERROUS SULFATE 325 MG EC TABLET PO SCH ×3 (06:45→17:00)
[2017-02-03 08:30] VITALS: BP 104/63
[2017-02-03] MEDS ORDERED: PALIPERIDONE PALMITATE 234 MG/1.5 ML SYRINGE IM ONE (09:00)
[2017-02-03] MEDS: FLUoxetine HCL 20 MG CAPSULE PO SCH (09:07)
[2017-02-03] MEDS: OMEPRAZOLE 20 MG CAPSULE PO SCH (09:07)
[2017-02-03] MEDS: PALIPERIDONE 6 MG ER TABLET PO SCH ×2 (09:07→20:36)
[2017-02-03 16:38] VITALS: BP 106/63
[2017-02-03] MEDS: TraZODone HCL 100 MG TABLET PO SCH (20:36)
[2017-02-04 00:15] VITALS: BP 108/72
[2017-02-04] MEDS: FERROUS SULFATE 325 MG EC TABLET PO SCH ×2 (07:01→11:30)
[2017-02-04] MEDS: FLUoxetine HCL 20 MG CAPSULE PO SCH (08:19)
[2017-02-04] MEDS: OMEPRAZOLE 20 MG CAPSULE PO SCH (08:19)
[2017-02-04] MEDS: PALIPERIDONE 6 MG ER TABLET PO SCH ×2 (08:19→20:26)
[2017-02-04 08:45] VITALS: BP 105/64
[2017-02-04 16:18] VITALS: BP 103/63
[2017-02-04] MEDS: TraZODone HCL 100 MG TABLET PO SCH (20:26)
[2017-02-05 06:41] VITALS: BP 108/67
[2017-02-05] MEDS: FERROUS SULFATE 325 MG EC TABLET PO SCH (07:00)
[2017-02-05 08:36] VITALS: BP 128/63
[2017-02-05] MEDS: OMEPRAZOLE 20 MG CAPSULE PO SCH (09:15)
[2017-02-05] MEDS: PALIPERIDONE 6 MG ER TABLET PO SCH ×2 (09:15→21:02)
[2017-02-05] MEDS: FLUoxetine HCL 20 MG CAPSULE PO SCH (09:15)
[2017-02-05] MEDS ORDERED: PERMETHRIN 5% 60 GM CREAM TP ONE (11:00)
[2017-02-05] MEDS: GABAPENTIN 100 MG CAPSULE PO SCH ×2 (12:37→16:53)
[2017-02-05] MEDS: LORazepam 2 MG TABLET PO PRN (12:57)
[2017-02-05 16:15] VITALS: BP 104/60
[2017-02-05] MEDS: TraZODone HCL 100 MG TABLET PO SCH (21:02)
[2017-02-06 00:15] VITALS: BP 117/68
[2017-02-06] MEDS: FERROUS SULFATE 325 MG EC TABLET PO SCH (06:46)
[2017-02-06 08:32] VITALS: BP 126/73
[2017-02-06] MEDS: OMEPRAZOLE 20 MG CAPSULE PO SCH (08:34)
[2017-02-06] MEDS: PALIPERIDONE 6 MG ER TABLET PO SCH ×2 (08:34→20:24)
[2017-02-06] MEDS: FLUoxetine HCL 20 MG CAPSULE PO SCH (08:34)
[2017-02-06] MEDS: GABAPENTIN 100 MG CAPSULE PO SCH ×3 (08:34→17:13)
[2017-02-06] MEDS: LORazepam 2 MG TABLET PO PRN (16:12)
[2017-02-06 16:24] VITALS: BP_SYST 11; BP_SYST 111; BP_DIAS 62
[2017-02-06] MEDS: TraZODone HCL 100 MG TABLET PO SCH (20:24)
[2017-02-07 06:46] VITALS: BP 110/63
[2017-02-07] MEDS: FERROUS SULFATE 325 MG EC TABLET PO SCH (06:47)
[2017-02-07 08:28] VITALS: BP 105/62
[2017-02-07] MEDS: OMEPRAZOLE 20 MG CAPSULE PO SCH (08:36)
[2017-02-07] MEDS: PALIPERIDONE 6 MG ER TABLET PO SCH ×2 (08:36→20:29)
[2017-02-07] MEDS: GABAPENTIN 100 MG CAPSULE PO SCH ×3 (08:36→16:37)
[2017-02-07] MEDS: FLUoxetine HCL 20 MG CAPSULE PO SCH (08:37)
[2017-02-07 16:14] VITALS: BP 100/56
[2017-02-07] MEDS: TraZODone HCL 100 MG TABLET PO SCH (20:29)
[2017-02-08 01:03] VITALS: BP 120/66
[2017-02-08] MEDS: FERROUS SULFATE 325 MG EC TABLET PO SCH (06:12)
[2017-02-08] MEDS: PALIPERIDONE 6 MG ER TABLET PO SCH ×2 (08:41→20:29)
[2017-02-08] MEDS: GABAPENTIN 100 MG CAPSULE PO SCH ×3 (08:41→16:29)
[2017-02-08] MEDS: FLUoxetine HCL 20 MG CAPSULE PO SCH (08:41)
[2017-02-08] MEDS: OMEPRAZOLE 20 MG CAPSULE PO SCH (08:41)
[2017-02-08 08:49] VITALS: BP 101/62
[2017-02-08] MEDS ORDERED: DOCUSATE SODIUM 250 MG CAPSULE PO PRN (09:15)
[2017-02-08] MEDS ORDERED: MAGNESIUM CITRATE 300 ML ORAL SOLUTION PO PRN (09:30)
[2017-02-08] MEDS ORDERED: TRAZ-147 PO (10:48)
[2017-02-08] MEDS ORDERED: FLUO-191 PO (10:48)
[2017-02-08] MEDS ORDERED: GABA-529 PO (10:48)
[2017-02-08] MEDS ORDERED: DOCU250C91 PO (10:48)
[2017-02-08] MEDS ORDERED: OMEP20 PO (10:48)
[2017-02-08] MEDS ORDERED: FERR-89 PO (10:48)
[2017-02-08 16:17] VITALS: BP 112/72
[2017-02-08] MEDS: TraZODone HCL 100 MG TABLET PO SCH (20:29)
[2017-02-08] MEDS: DOCUSATE SODIUM 250 MG CAPSULE PO SCH (20:29)
[2017-02-09 01:58] VITALS: BP 111/62
[2017-02-09] MEDS: FERROUS SULFATE 325 MG EC TABLET PO SCH (06:32)
[2017-02-09 08:00] VITALS: BP 100/56
[2017-02-09] MEDS: GABAPENTIN 100 MG CAPSULE PO SCH ×3 (08:56→17:03)
[2017-02-09] MEDS: OMEPRAZOLE 20 MG CAPSULE PO SCH (08:56)
[2017-02-09] MEDS: PALIPERIDONE 6 MG ER TABLET PO SCH ×2 (08:56→20:15)
[2017-02-09] MEDS: FLUoxetine HCL 20 MG CAPSULE PO SCH (08:56)
[2017-02-09 16:28] VITALS: BP 103/65
[2017-02-09] MEDS: DOCUSATE SODIUM 250 MG CAPSULE PO SCH (20:15)
[2017-02-09] MEDS: TraZODone HCL 100 MG TABLET PO SCH (20:15)
[2017-02-10] MEDS: FERROUS SULFATE 325 MG EC TABLET PO SCH (06:23)
[2017-02-10 06:55] VITALS: BP 113/73
[2017-02-10 08:38] VITALS: BP 119/60
[2017-02-10] MEDS: GABAPENTIN 100 MG CAPSULE PO SCH ×3 (09:03→16:59)
[2017-02-10] MEDS: FLUoxetine HCL 20 MG CAPSULE PO SCH (09:04)
[2017-02-10] MEDS: OMEPRAZOLE 20 MG CAPSULE PO SCH (09:04)
[2017-02-10] MEDS: PALIPERIDONE 6 MG ER TABLET PO SCH ×2 (09:04→20:29)
[2017-02-10] MEDS ORDERED: MAG HYDROX/AL HYDROX/SIMETH 30 ML SUSP UDCUP PO PRN (11:00)
[2017-02-10 16:39] VITALS: BP 100/50
[2017-02-10] MEDS: DOCUSATE SODIUM 250 MG CAPSULE PO SCH (20:29)
[2017-02-10] MEDS: TraZODone HCL 100 MG TABLET PO SCH (20:29)
[2017-02-11 00:05] VITALS: BP 100/66
[2017-02-11] MEDS: FERROUS SULFATE 325 MG EC TABLET PO SCH (06:29)
[2017-02-11] MEDS: PALIPERIDONE 6 MG ER TABLET PO SCH (08:25)
[2017-02-11] MEDS: FLUoxetine HCL 20 MG CAPSULE PO SCH (08:25)
[2017-02-11] MEDS: GABAPENTIN 100 MG CAPSULE PO SCH ×2 (08:25→12:55)
[2017-02-11] MEDS: OMEPRAZOLE 20 MG CAPSULE PO SCH (08:25)
[2017-02-11 09:21] VITALS: BP 106/68
[2017-02-11] MEDS ORDERED: FLUO-191 PO ×2 (13:01→13:02)
== END 2017-02-11 14:46 | disposition home health service (06) | DRG 885 ==
LOC: B2S 16:29 → B2X 21:57
PROVIDERS: ADMIT Psychiatry & Neurology Psychiatry; ATTEND Psychiatry & Neurology Psychiatry
DX: F25.1 Schizoaffective disorder, depressive type (principal); E88.09 Other disorders of plasma-protein metabolism, not elsewhere classified; R45.851 Suicidal ideations; F15.20 Other stimulant dependence, uncomplicated; F29 Unspecified psychosis not due to a substance or known physiological condition; D64.9 Anemia, unspecified; F41.9 Anxiety disorder, unspecified; G24.01 Drug induced subacute dyskinesia; K21.9 Gastro-esophageal reflux disease without esophagitis; M26.609 Unspecified temporomandibular joint disorder, unspecified side; F60.3 Borderline personality disorder; W57.XXXA Bitten or stung by nonvenomous insect and other nonvenomous arthropods, initial encounter; Y93.89 Activity, other specified; Y92.89 Other specified places as the place of occurrence of the external cause; Z87.440 Personal history of urinary (tract) infections; Z91.19 Patient's noncompliance with other medical treatment and regimen; Z98.84 Bariatric surgery status; Z98.51 Tubal ligation status; Z88.0 Allergy status to penicillin; Z88.2 Allergy status to sulfonamides
CPT/HCPCS: 84439; 84443; 90471

== ENCOUNTER 2017-07-18 14:01 | Inpatient (IN) | payer MEDICAID, MEDICARE ==
[~2017-07-18] VITALS: Ht 160 cm; Wt 55.7 kg
[~2017-07-18 14:01] MED LIST changes: +DOCU250C91 PO; +FERR-89 PO; -FERR324T4 PO; +GABA-529 PO
[2017-07-18 14:17] VITALS: BP 150/77
[2017-07-18] MEDS ORDERED: LORazepam 2 MG TABLET PO PRN (14:30)
[2017-07-18] MEDS ORDERED: ZOLPIDEM TARTRATE 10 MG TABLET PO PRN (14:30)
[2017-07-18 16:00] VITALS: BP 142/82
[2017-07-18 16:08] VITALS: BP 142/82
[2017-07-18] MEDS: DOCUSATE SODIUM 250 MG CAPSULE PO SCH (20:44)
[2017-07-18] MEDS: TraZODone HCL 100 MG TABLET PO SCH (20:44)
[2017-07-18] MEDS: PALIPERIDONE 6 MG ER TABLET PO SCH (20:45)
[2017-07-19 06:29] VITALS: BP 108/60
[2017-07-19] MEDS: FERROUS SULFATE 325 MG EC TABLET PO SCH (06:54)
[2017-07-19 08:24] VITALS: BP 100/60
[2017-07-19 08:42] VITALS: BP 106/58
[2017-07-19] MEDS: PALIPERIDONE 6 MG ER TABLET PO SCH ×2 (09:28→20:29)
[2017-07-19] MEDS: OMEPRAZOLE 20 MG CAPSULE PO SCH (09:29)
[2017-07-19] MEDS: FLUoxetine HCL 20 MG CAPSULE PO SCH (09:29)
[2017-07-19 16:02] VITALS: BP 107/64
[2017-07-19] MEDS: TraZODone HCL 100 MG TABLET PO SCH (20:29)
[2017-07-19] MEDS: DOCUSATE SODIUM 250 MG CAPSULE PO SCH (20:29)
[2017-07-20 00:59] VITALS: BP 103/62
[2017-07-20] MEDS: FERROUS SULFATE 325 MG EC TABLET PO SCH (06:25)
[2017-07-20 08:14] VITALS: BP 104/60
[2017-07-20] MEDS: OMEPRAZOLE 20 MG CAPSULE PO SCH (08:59)
[2017-07-20] MEDS: FLUoxetine HCL 20 MG CAPSULE PO SCH (08:59)
[2017-07-20] MEDS: PALIPERIDONE 6 MG ER TABLET PO SCH ×2 (08:59→20:34)
[2017-07-20 16:10] VITALS: BP 100/60
[2017-07-20] MEDS ORDERED: IBUPROFEN 600 MG TABLET PO PRN (16:30)
[2017-07-20] MEDS ORDERED: ACETAMINOPHEN 325 MG TABLET PO PRN (16:30)
[2017-07-20] MEDS: TraZODone HCL 100 MG TABLET PO SCH (20:34)
[2017-07-20] MEDS: DOCUSATE SODIUM 250 MG CAPSULE PO SCH (20:34)
[2017-07-21 00:08] VITALS: BP 102/71
[2017-07-21] MEDS: FERROUS SULFATE 325 MG EC TABLET PO SCH (06:53)
[2017-07-21 08:19] VITALS: BP 109/60
[2017-07-21 08:36] LABS: BASOPHILS % (AUTO) 1.3 % (0.0-2.0); EOSINOPHILS % (AUTO) 5.3 % (1.0-6.0); HEMATOCRIT 31.2 % (36-46); LYMPHOCYTES # (AUTO) 1.5 K/uL (1.0-4.8); LYMPHOCYTES % (AUTO) 33.7 % (22.0-44.0); MEAN CORPUSCULAR HEMOGLOBIN 24.1 pg (26.0-34.0); MEAN CORPUSCULAR HGB CONC 32.2 G/dL (31.0-37.0); MEAN CORPUSCULAR VOLUME 75 fL (80-100); MONOCYTES # (AUTO) 0.3 K/uL (0.1-1.0); MONOCYTES % (AUTO) 7.3 % (2.0-9.0); NEUTROPHILS # (AUTO) 2.3 K/uL (1.8-7.7); NEUTROPHILS % (AUTO) 52.4 % (40.0-70.0); PLATELET COUNT (AUTO) 272 K/uL (150-450); RED BLOOD CELL COUNT(AUTO) 4.17 MIL/uL (4.00-5.20); RED CELL DISTRIBUTION WIDTH 19.7 % (11.5-14.5)
[2017-07-21] MEDS: PALIPERIDONE 6 MG ER TABLET PO SCH ×2 (09:00→20:35)
[2017-07-21] MEDS: FLUoxetine HCL 20 MG CAPSULE PO SCH (09:00)
[2017-07-21] MEDS: OMEPRAZOLE 20 MG CAPSULE PO SCH (09:01)
[2017-07-21 09:07] LABS: ALANINE AMINOTRANSFERASE 14 U/L (12-78); ALKALINE PHOSPHATASE 81 U/L (46-116); ANION GAP 7 mmol/L (8-16); ASPARTATE AMINOTRANSFERASE 12 U/L (15-37); BILIRUBIN,TOTAL 0.2 mg/dL (0.1-1.0); CALCIUM, TOTAL 8.2 mg/dL (8.8-10.5); CARBON DIOXIDE 26 mmol/L (22-29); CHLORIDE 105 mmol/L (98-107); CHOL/HDL RATIO 2.8 (3.9-5.7); CHOLESTEROL 165 mg/dL (131-200); CREATININE 0.69 mg/dL (0.60-1.30); GLOMERULAR FILTR. RATE CALC > 60 mL/min (>60); GLUCOSE,RANDOM 146 mg/dL (70-110); HCG,QUANTITATIVE < 1 mIU/mL (0-6); HDL CHOLESTEROL 60 mg/dL (40-60); LDL CHOL (CALC.) 92 mg/dL (0-130); POTASSIUM 4.1 mmol/L (3.5-5.1); SODIUM SERUM 138 mmol/L (136-145); THYROID STIMULATING HORMONE 1.29 uIU/mL (0.36-3.74); TOTAL PROTEIN, SERUM 6.2 g/dL (6.4-8.2); TRIGLYCERIDES 67 mg/dL (15-150); UREA NITROGEN, BLOOD 12 mg/dL (7-18)
[2017-07-21 16:01] VITALS: BP 120/87
[2017-07-21] MEDS: TraZODone HCL 100 MG TABLET PO SCH (20:35)
[2017-07-21] MEDS: DOCUSATE SODIUM 250 MG CAPSULE PO SCH (20:35)
[2017-07-22] VITALS: BP 101/62
[2017-07-22] MEDS: FERROUS SULFATE 325 MG EC TABLET PO SCH (06:53)
[2017-07-22] MEDS: OMEPRAZOLE 20 MG CAPSULE PO SCH (08:06)
[2017-07-22] MEDS: FLUoxetine HCL 20 MG CAPSULE PO SCH (08:06)
[2017-07-22] MEDS: PALIPERIDONE 6 MG ER TABLET PO SCH ×2 (08:07→21:35)
[2017-07-22 08:30] VITALS: BP 102/64
[2017-07-22 16:04] VITALS: BP 104/60
[2017-07-22] MEDS: DOCUSATE SODIUM 250 MG CAPSULE PO SCH (21:35)
[2017-07-22] MEDS: TraZODone HCL 100 MG TABLET PO SCH (21:35)
[2017-07-23] MEDS: FERROUS SULFATE 325 MG EC TABLET PO SCH (06:20)
[2017-07-23] MEDS: PALIPERIDONE 6 MG ER TABLET PO SCH ×2 (08:11→20:30)
[2017-07-23] MEDS: FLUoxetine HCL 20 MG CAPSULE PO SCH (08:11)
[2017-07-23] MEDS: OMEPRAZOLE 20 MG CAPSULE PO SCH (08:11)
[2017-07-23 08:31] VITALS: BP 105/60
[2017-07-23 16:03] VITALS: BP 108/77
[2017-07-23] MEDS: DOCUSATE SODIUM 250 MG CAPSULE PO SCH (20:30)
[2017-07-23] MEDS: TraZODone HCL 100 MG TABLET PO SCH (20:30)
[2017-07-24 00:49] VITALS: BP 109/62
[2017-07-24] MEDS: FERROUS SULFATE 325 MG EC TABLET PO SCH (06:47)
[2017-07-24 08:00] VITALS: BP 114/63
[2017-07-24] MEDS: FLUoxetine HCL 20 MG CAPSULE PO SCH (08:29)
[2017-07-24] MEDS: OMEPRAZOLE 20 MG CAPSULE PO SCH (08:29)
[2017-07-24] MEDS: PALIPERIDONE 6 MG ER TABLET PO SCH (08:29)
[2017-07-24] MEDS ORDERED: PALIPERIDONE PALMITATE 234 MG/1.5 ML SYRINGE IM SCH (13:00)
== END 2017-07-24 14:45 | disposition home or self-care (01) | DRG 885 ==
LOC: B2X 14:28
PROVIDERS: ADMIT Psychiatry & Neurology Psychiatry; ATTEND Psychiatry & Neurology Psychiatry
DX: F25.1 Schizoaffective disorder, depressive type (principal); R45.851 Suicidal ideations; Z91.14 Patient's other noncompliance with medication regimen; F41.9 Anxiety disorder, unspecified; D64.9 Anemia, unspecified; F15.90 Other stimulant use, unspecified, uncomplicated; K21.9 Gastro-esophageal reflux disease without esophagitis; K59.00 Constipation, unspecified; F60.3 Borderline personality disorder; Z88.1 Allergy status to other antibiotic agents; Z88.8 Allergy status to other drugs, medicaments and biological substances; Z91.013 Allergy to seafood
CPT/HCPCS: 84439; 84443

== ENCOUNTER 2017-10-23 11:55 | Emergency (ER) | payer MEDICAID, MEDICARE ==
[~2017-10-23] VITALS: Ht 162.6 cm; Wt 63.6 kg
[~2017-10-23 11:55] MED LIST changes: -GABA-529 PO; -PALI234D IM
[2017-10-23] MEDS ORDERED: OLAN5TAB2 PO (12:14)
[2017-10-23] MEDS ORDERED: GABA-529 PO (12:14)
[2017-10-23] MEDS ORDERED: LORazepam 1 MG TABLET PO ONE (13:45)
[2017-10-23] MEDS ORDERED: PALIPERIDONE 3 MG ER TABLET PO ONE (13:45)
[2017-10-23 14:50] VITALS: BP 124/87
== END 2017-10-23 14:50 | disposition home or self-care (01) ==
LOC: EMS 11:56
DX: F41.9 Anxiety disorder, unspecified (principal); F12.10 Cannabis abuse, uncomplicated; F15.10 Other stimulant abuse, uncomplicated; F20.9 Schizophrenia, unspecified; F31.9 Bipolar disorder, unspecified; Z79.899 Other long term (current) drug therapy; Z91.013 Allergy to seafood; Z88.0 Allergy status to penicillin; Z88.8 Allergy status to other drugs, medicaments and biological substances
CPT/HCPCS: 99284

== ENCOUNTER 2017-11-12 20:04 | Inpatient (IN) | payer MEDICAID ==
[~2017-11-12 20:04] MED LIST changes: -DOCU250C91 PO; -FERR-89 PO; +GABA-529 PO; +OLAN5TAB2 PO; -OMEP20 PO; -PALI6 PO; -TRAZ-147 PO; +TRAZ-220 PO
[2017-11-12] MEDS ORDERED: LORazepam 2 MG TABLET PO PRN (20:30)
[2017-11-12] MEDS ORDERED: HALOPERIDOL 5 MG TABLET PO PRN (20:30)
[2017-11-12] MEDS ORDERED: ZOLPIDEM TARTRATE 10 MG TABLET PO PRN (20:30)
[2017-11-12 21:27] VITALS: BP 129/60
[2017-11-12] MEDS ORDERED: LOPERAMIDE HCL 2 MG CAPSULE PO PRN (21:45)
[2017-11-12] MEDS ORDERED: MAGNESIUM HYDROXIDE SUSPENSION 30 ML UDCUP PO PRN (21:45)
[2017-11-12] MEDS ORDERED: ACETAMINOPHEN 325 MG TABLET PO PRN (21:45)
[2017-11-12] MEDS ORDERED: PETROLATUM,WHITE 71 GM JELLY TP PRN (21:45)
[2017-11-12] MEDS ORDERED: MAG HYDROX/AL HYDROX/SIMETH ES 30 ML SUSPENSION UDCUP PO PRN (21:45)
[2017-11-12] MEDS ORDERED: IBUPROFEN 400 MG TABLET PO PRN (21:45)
[2017-11-12] MEDS ORDERED: ALBUTEROL SULFATE HFA 90 MCG/PUFF 8 GM INHALER IH PRN (21:45)
[2017-11-12] MEDS ORDERED: DOCUSATE SODIUM 100 MG CAPSULE PO PRN (21:45)
[2017-11-12] MEDS ORDERED: HYDROCORTISONE 1% 30 GM OINTMENT TP PRN (21:45)
[2017-11-12] MEDS ORDERED: CloNIDine HCL 0.1 MG TABLET PO PRN (21:45)
[2017-11-13 06:08] VITALS: BP 110/74
[2017-11-13 08:13] VITALS: BP 120/67
[2017-11-13] MEDS: FAMOTIDINE 20 MG TABLET PO SCH (09:46)
[2017-11-13 16:10] VITALS: BP 110/76
[2017-11-13] MEDS: ONDANSETRON HCL 4 MG TABLET PO PRN (17:15)
[2017-11-13] MEDS: TraZODone HCL 100 MG TABLET PO SCH (20:14)
[2017-11-13] MEDS: OLANZapine 5 MG TABLET PO SCH (20:14)
[2017-11-14 06:41] VITALS: BP 101/76
[2017-11-14 08:19] VITALS: BP 105/64
[2017-11-14 08:45] LABS: BASOPHILS % (AUTO) 1.1 % (0.0-2.0); EOSINOPHILS % (AUTO) 3.6 % (1.0-6.0); HEMATOCRIT 32.2 % (36-46); HEMOGLOBIN 10.6 g/dL (12.0-16.0); LYMPHOCYTES # (AUTO) 2.5 K/uL (1.0-4.8); LYMPHOCYTES % (AUTO) 39.3 % (22.0-44.0); MEAN CORPUSCULAR HEMOGLOBIN 25.1 pg (26.0-34.0); MEAN CORPUSCULAR HGB CONC 33.1 G/dL (31.0-37.0); MEAN CORPUSCULAR VOLUME 76 fL (80-100); MONOCYTES # (AUTO) 0.7 K/uL (0.1-1.0); MONOCYTES % (AUTO) 10.3 % (2.0-9.0); NEUTROPHILS # (AUTO) 2.9 K/uL (1.8-7.7); NEUTROPHILS % (AUTO) 45.7 % (40.0-70.0); PLATELET COUNT (AUTO) 381 K/uL (150-450); RED BLOOD CELL COUNT(AUTO) 4.23 MIL/uL (4.00-5.20)
[2017-11-14 09:09] LABS: ALANINE AMINOTRANSFERASE 19 U/L (12-78); ALBUMIN 3.1 g/dL (3.4-5.0); ALKALINE PHOSPHATASE 60 U/L (46-116); ANION GAP 5 mmol/L (8-16); ASPARTATE AMINOTRANSFERASE 16 U/L (15-37); BILIRUBIN,TOTAL 0.3 mg/dL (0.1-1.0); CALCIUM, TOTAL 8.3 mg/dL (8.8-10.5); CARBON DIOXIDE 27 mmol/L (22-29); CHLORIDE 105 mmol/L (98-107); CHOL/HDL RATIO 2.6 (3.9-5.7); CHOLESTEROL 174 mg/dL (131-200); CREATININE 0.73 mg/dL (0.60-1.30); FREE T4 (FREE THYROXINE) 0.72 ng/dL (0.76-1.46); GLOMERULAR FILTR. RATE CALC > 60 mL/min (>60); GLUCOSE,RANDOM 108 mg/dL (70-110); HCG,QUANTITATIVE < 1 mIU/mL (0-6); HDL CHOLESTEROL 68 mg/dL (40-60); LDL CHOL (CALC.) 90 mg/dL (0-130); POTASSIUM 4.2 mmol/L (3.5-5.1); SODIUM SERUM 137 mmol/L (136-145); THYROID STIMULATING HORMONE 1.19 uIU/mL (0.36-3.74); TOTAL PROTEIN, SERUM 6.4 g/dL (6.4-8.2); TRIGLYCERIDES 80 mg/dL (15-150); UREA NITROGEN, BLOOD 14 mg/dL (7-18)
[2017-11-14 09:13] LABS: HEMOGLOBIN A1C 5.4 % (4.5-6.2)
[2017-11-14] MEDS: FLUoxetine HCL 20 MG CAPSULE PO SCH (09:27)
[2017-11-14] MEDS: OLANZapine 5 MG TABLET PO SCH ×2 (09:27→20:15)
[2017-11-14] MEDS: FAMOTIDINE 20 MG TABLET PO SCH (09:27)
[2017-11-14] MEDS: TraZODone HCL 100 MG TABLET PO SCH (20:15)
[2017-11-15 06:41] VITALS: BP 113/67
[2017-11-15 08:39] VITALS: BP 104/61
[2017-11-15] MEDS: FLUoxetine HCL 20 MG CAPSULE PO SCH (08:58)
[2017-11-15] MEDS: FAMOTIDINE 20 MG TABLET PO SCH (08:58)
[2017-11-15] MEDS: OLANZapine 5 MG TABLET PO SCH ×2 (08:58→20:17)
[2017-11-15 18:11] VITALS: BP 104/65
[2017-11-15] MEDS: TraZODone HCL 100 MG TABLET PO SCH (20:17)
[2017-11-16 06:33] VITALS: BP 101/62
[2017-11-16 08:33] VITALS: BP 119/76
[2017-11-16] MEDS: FLUoxetine HCL 20 MG CAPSULE PO SCH (09:20)
[2017-11-16] MEDS: FAMOTIDINE 20 MG TABLET PO SCH (09:21)
[2017-11-16] MEDS: OLANZapine 5 MG TABLET PO SCH ×2 (09:21→20:33)
[2017-11-16 16:32] VITALS: BP 112/66
[2017-11-16] MEDS: ONDANSETRON HCL 4 MG TABLET PO PRN (17:58)
[2017-11-16] MEDS: TraZODone HCL 100 MG TABLET PO SCH (20:33)
[2017-11-17 06:44] VITALS: BP 110/68
[2017-11-17 08:32] VITALS: BP 105/69
[2017-11-17] MEDS: FLUoxetine HCL 20 MG CAPSULE PO SCH (09:17)
[2017-11-17] MEDS: OLANZapine 5 MG TABLET PO SCH ×2 (09:18→20:36)
[2017-11-17] MEDS: FAMOTIDINE 20 MG TABLET PO SCH (09:18)
[2017-11-17 16:25] VITALS: BP 109/67
[2017-11-17] MEDS: ONDANSETRON HCL 4 MG TABLET PO PRN (17:10)
[2017-11-17] MEDS: TraZODone HCL 100 MG TABLET PO SCH (20:36)
[2017-11-18 01:25] VITALS: BP 102/63
[2017-11-18 08:00] VITALS: BP 106/63
[2017-11-18] MEDS: FAMOTIDINE 20 MG TABLET PO SCH (08:43)
[2017-11-18] MEDS: FLUoxetine HCL 20 MG CAPSULE PO SCH (08:43)
[2017-11-18] MEDS: OLANZapine 5 MG TABLET PO SCH ×2 (08:43→20:24)
[2017-11-18 16:31] VITALS: BP 109/71
[2017-11-18] MEDS: TraZODone HCL 100 MG TABLET PO SCH (20:24)
[2017-11-19 05:38] VITALS: BP 105/72
[2017-11-19] MEDS: OLANZapine 5 MG TABLET PO SCH (08:09)
[2017-11-19] MEDS: FAMOTIDINE 20 MG TABLET PO SCH (08:09)
[2017-11-19] MEDS: FLUoxetine HCL 20 MG CAPSULE PO SCH (08:09)
[2017-11-19 08:28] VITALS: BP 109/75
[2017-11-19] MEDS ORDERED: FAMO20 PO (10:29)
[2017-11-19] MEDS ORDERED: OLAN5TAB2 PO (10:29)
== END 2017-11-19 12:00 | disposition home or self-care (01) | DRG 750 ==
LOC: B3A 20:22 → B2S 22:06
DX: F25.1 Schizoaffective disorder, depressive type (principal); F32.9 Major depressive disorder, single episode, unspecified; D64.9 Anemia, unspecified; F10.10 Alcohol abuse, uncomplicated; F15.90 Other stimulant use, unspecified, uncomplicated; K21.9 Gastro-esophageal reflux disease without esophagitis; Z91.5 Personal history of self-harm; Z88.8 Allergy status to other drugs, medicaments and biological substances; Z88.0 Allergy status to penicillin; Z91.013 Allergy to seafood; Z71.51 Drug abuse counseling and surveillance of drug abuser
CPT/HCPCS: 83036; 84439; 84443; Q0162

== ENCOUNTER 2018-02-11 00:08 | Inpatient (IN) | payer MEDICAID ==
[~2018-02-11] VITALS: Ht 160 cm; Wt 48.0 kg
[~2018-02-11 00:08] MED LIST changes: +FAMO20 PO; -GABA-529 PO
[2018-02-11 02:06] VITALS: BP 107/76
[2018-02-11] MEDS ORDERED: VENL25TA47 PO (02:26)
[2018-02-11] MEDS ORDERED: PROZ10 PO (02:26)
[2018-02-11] MEDS ORDERED: TRAZ-220 PO (02:26)
[2018-02-11] MEDS ORDERED: ZOLPIDEM TARTRATE 10 MG TABLET PO PRN (02:30)
[2018-02-11] MEDS ORDERED: HALOPERIDOL 5 MG TABLET PO PRN (02:30)
[2018-02-11] MEDS ORDERED: LORazepam 2 MG TABLET PO PRN (02:30)
[2018-02-11 03:05] VITALS: BP 106/60
[2018-02-11] MEDS ORDERED: GuaiFENesin/D-METHORPHAN [SUGAR-FREE] 200-20MG/10 ML SYRUP UDCUP PO PRN (05:15)
[2018-02-11] MEDS ORDERED: IBUPROFEN 400 MG TABLET PO PRN (05:15)
[2018-02-11] MEDS ORDERED: ALBUTEROL SULFATE HFA 90 MCG/PUFF 8 GM INHALER IH PRN (05:15)
[2018-02-11] MEDS ORDERED: PETROLATUM,WHITE 71 GM JELLY TP PRN (05:15)
[2018-02-11] MEDS ORDERED: ACETAMINOPHEN 325 MG TABLET PO PRN (05:15)
[2018-02-11] MEDS ORDERED: ONDANSETRON HCL 4 MG TABLET PO PRN (05:15)
[2018-02-11] MEDS ORDERED: DOCUSATE SODIUM 100 MG CAPSULE PO PRN (05:15)
[2018-02-11] MEDS ORDERED: MAGNESIUM HYDROXIDE SUSPENSION 30 ML UDCUP PO PRN (05:15)
[2018-02-11] MEDS ORDERED: LOPERAMIDE HCL 2 MG CAPSULE PO PRN (05:15)
[2018-02-11] MEDS ORDERED: NICOTINE 14 MG/24 HOUR PATCH TD PRN (05:15)
[2018-02-11] MEDS ORDERED: MAG HYDROX/AL HYDROX/SIMETH ES 30 ML SUSPENSION UDCUP PO PRN (05:15)
[2018-02-11] MEDS ORDERED: CloNIDine HCL 0.1 MG TABLET PO PRN (05:15)
[2018-02-11] MEDS ORDERED: TraZODone HCL 100 MG TABLET PO PRN (10:30)
[2018-02-11 16:04] VITALS: BP_SYST 110; BP_SYST 117; BP_DIAS 74; BP_DIAS 79
[2018-02-11] MEDS: OLANZapine 5 MG TABLET PO SCH (16:19)
[2018-02-11] MEDS: FERROUS SULFATE 325 MG EC TABLET PO SCH (16:19)
[2018-02-12 01:07] VITALS: BP 104/72
[2018-02-12] MEDS: FERROUS SULFATE 325 MG EC TABLET PO SCH ×3 (07:04→16:59)
[2018-02-12 08:08] VITALS: BP 100/70
[2018-02-12 08:25] LABS: BASOPHILS % (AUTO) 1.2 % (0.0-2.0); EOSINOPHILS % (AUTO) 2.8 % (1.0-6.0); HEMATOCRIT 30.4 % (36-46); HEMOGLOBIN 9.8 g/dL (12.0-16.0); LYMPHOCYTES # (AUTO) 2.1 K/uL (1.0-4.8); LYMPHOCYTES % (AUTO) 36.4 % (22.0-44.0); MEAN CORPUSCULAR HEMOGLOBIN 23.7 pg (26.0-34.0); MEAN CORPUSCULAR HGB CONC 32.2 G/dL (31.0-37.0); MEAN CORPUSCULAR VOLUME 74 fL (80-100); MONOCYTES # (AUTO) 0.6 K/uL (0.1-1.0); MONOCYTES % (AUTO) 10.1 % (2.0-9.0); NEUTROPHILS # (AUTO) 2.8 K/uL (1.8-7.7); NEUTROPHILS % (AUTO) 49.5 % (40.0-70.0); PLATELET COUNT (AUTO) 322 K/uL (150-450); RED BLOOD CELL COUNT(AUTO) 4.13 MIL/uL (4.00-5.20); RED CELL DISTRIBUTION WIDTH 17.2 % (11.5-14.5)
[2018-02-12 08:48] LABS: HEMOGLOBIN A1C 5.8 % (4.5-6.2)
[2018-02-12 08:51] LABS: ALANINE AMINOTRANSFERASE 25 U/L (12-78); ALBUMIN 3.1 g/dL (3.4-5.0); ALKALINE PHOSPHATASE 63 U/L (46-116); ANION GAP 8 mmol/L (8-16); ASPARTATE AMINOTRANSFERASE 17 U/L (15-37); BILIRUBIN,TOTAL 0.2 mg/dL (0.1-1.0); CALCIUM, TOTAL 8.2 mg/dL (8.8-10.5); CARBON DIOXIDE 27 mmol/L (22-29); CHLORIDE 105 mmol/L (98-107); CHOL/HDL RATIO 2.3 (3.9-5.7); CHOLESTEROL 168 mg/dL (131-200); CREATININE 0.65 mg/dL (0.60-1.30); GLOMERULAR FILTR. RATE CALC > 60 mL/min (>60); GLUCOSE,RANDOM 89 mg/dL (70-110); HDL CHOLESTEROL 73 mg/dL (40-60); LDL CHOL (CALC.) 72 mg/dL (0-130); SODIUM SERUM 140 mmol/L (136-145); THYROID STIMULATING HORMONE 1.13 uIU/mL (0.36-3.74); TOTAL PROTEIN, SERUM 6.2 g/dL (6.4-8.2); TRIGLYCERIDES 114 mg/dL (15-150); UREA NITROGEN, BLOOD 10 mg/dL (7-18)
[2018-02-12] MEDS: OLANZapine 5 MG TABLET PO SCH ×2 (09:00→16:59)
[2018-02-12] MEDS: FAMOTIDINE 20 MG TABLET PO SCH (09:00)
[2018-02-12] MEDS: FLUoxetine HCL 20 MG CAPSULE PO SCH (09:01)
[2018-02-12 16:20] VITALS: BP 124/76
[2018-02-13 00:58] VITALS: BP 121/73
[2018-02-13] MEDS: FERROUS SULFATE 325 MG EC TABLET PO SCH ×3 (06:34→16:43)
[2018-02-13 08:13] VITALS: BP 109/71
[2018-02-13] MEDS: OLANZapine 5 MG TABLET PO SCH ×2 (08:52→16:37)
[2018-02-13] MEDS: FLUoxetine HCL 20 MG CAPSULE PO SCH (08:52)
[2018-02-13] MEDS: FAMOTIDINE 20 MG TABLET PO SCH (09:13)
[2018-02-13 16:25] VITALS: BP 111/72
[2018-02-14 01:59] VITALS: BP 112/71
[2018-02-14] MEDS: FERROUS SULFATE 325 MG EC TABLET PO SCH ×3 (07:00→17:04)
[2018-02-14 08:07] VITALS: BP 104/62
[2018-02-14] MEDS: FAMOTIDINE 20 MG TABLET PO SCH (08:45)
[2018-02-14] MEDS: FLUoxetine HCL 20 MG CAPSULE PO SCH (08:46)
[2018-02-14] MEDS: OLANZapine 5 MG TABLET PO SCH ×2 (08:46→17:04)
[2018-02-14 15:55] VITALS: BP 110/61
[2018-02-14 16:11] VITALS: BP 110/61
[2018-02-15] MEDS: FERROUS SULFATE 325 MG EC TABLET PO SCH ×3 (06:30→17:06)
[2018-02-15 06:49] VITALS: BP 109/75
[2018-02-15 08:34] VITALS: BP 101/69
[2018-02-15] MEDS: FLUoxetine HCL 20 MG CAPSULE PO SCH (08:35)
[2018-02-15] MEDS: FAMOTIDINE 20 MG TABLET PO SCH (08:35)
[2018-02-15] MEDS: OLANZapine 5 MG TABLET PO SCH ×2 (08:35→17:06)
[2018-02-15 16:03] VITALS: BP 113/75
[2018-02-16 06:12] VITALS: BP 111/65
[2018-02-16] MEDS: FERROUS SULFATE 325 MG EC TABLET PO SCH ×3 (06:13→11:42)
[2018-02-16 08:24] VITALS: BP 100/67
[2018-02-16] MEDS: FLUoxetine HCL 20 MG CAPSULE PO SCH (08:56)
[2018-02-16] MEDS: OLANZapine 5 MG TABLET PO SCH (08:57)
[2018-02-16] MEDS: FAMOTIDINE 20 MG TABLET PO SCH (08:57)
[2018-02-16] MEDS ORDERED: FERR325T22 PO (12:47)
== END 2018-02-16 13:45 | disposition home or self-care (01) | DRG 750 ==
LOC: B2S 02:31 → EDSTATUS 02:55
PROVIDERS: ADMIT Psychiatry & Neurology Psychiatry; ATTEND Psychiatry & Neurology Psychiatry
DX: F25.1 Schizoaffective disorder, depressive type (principal); R45.851 Suicidal ideations; F15.20 Other stimulant dependence, uncomplicated; Z91.19 Patient's noncompliance with other medical treatment and regimen; F19.90 Other psychoactive substance use, unspecified, uncomplicated; F10.10 Alcohol abuse, uncomplicated; K21.9 Gastro-esophageal reflux disease without esophagitis; K59.00 Constipation, unspecified; F60.3 Borderline personality disorder; D64.9 Anemia, unspecified; Z71.41 Alcohol abuse counseling and surveillance of alcoholic; Z71.51 Drug abuse counseling and surveillance of drug abuser; Z91.5 Personal history of self-harm; Z91.013 Allergy to seafood; Z88.0 Allergy status to penicillin; Z88.8 Allergy status to other drugs, medicaments and biological substances; Z79.899 Other long term (current) drug therapy; Z23 Encounter for immunization
CPT/HCPCS: 83036; 84439; 84443; 87081; 90686

== ENCOUNTER 2018-10-03 12:24 | Emergency (ER) | payer MEDICAID ==
[~2018-10-03] VITALS: Ht 160 cm; Wt 56.8 kg
[~2018-10-03 12:24] MED LIST changes: +FERR325T22 PO; -TRAZ-220 PO
[2018-10-03 12:56] VITALS: BP 109/66
[2018-10-03] MEDS ORDERED: ZIPR20CA2 PO (13:02)
[2018-10-03] MEDS ORDERED: TRAZ-252 PO (13:02)
[2018-10-03] MEDS ORDERED: TOLT2CAP27 PO (13:02)
== END 2018-10-03 15:17 | disposition left against medical advice (07) ==
LOC: EMS 12:31
DX: R11.2 Nausea with vomiting, unspecified (principal); M79.10 Myalgia, unspecified site; F41.9 Anxiety disorder, unspecified; F31.9 Bipolar disorder, unspecified; F20.9 Schizophrenia, unspecified; F12.90 Cannabis use, unspecified, uncomplicated; F19.90 Other psychoactive substance use, unspecified, uncomplicated; Z53.21 Procedure and treatment not carried out due to patient leaving prior to being seen by health care provider